=== PATIENT | female | born 1965 | race Caucasian/White ===

== ENCOUNTER 2016-04-02 10:50 | Emergency (ER) | payer BC, MEDICAID ==
[2016-04-02] MEDS ORDERED: PROMETHAZINE INJ 25 MG in SODIUM CHLORIDE 0.9% 50 ML IV STA (12:10)
[2016-04-02] MEDS ORDERED: SODIUM CHLORIDE 0.9% 1,000 ML IV ONE ×3 (12:10→12:23)
[2016-04-02] MEDS ORDERED: diphenhydrAMINE INJ 50 MG/ML VIAL IVP STA (12:11)
[2016-04-02] MEDS ORDERED: HYDROmorphone 1 MG/ML SYRINGE IVP STA ×3 (12:11→14:01)
[2016-04-02] MEDS ORDERED: DEXAMETHASONE 10 MG/ML VIAL PO STA (12:11)
[2016-04-02] MEDS ORDERED: PROMETHAZINE 25 MG/1 ML VIAL ONE (12:22)
[2016-04-02] MEDS ORDERED: diphenhydrAMINE INJ 50 MG/ML VIAL ONE (12:22)
[2016-04-02] MEDS ORDERED: DEXAMETHASONE 10 MG/ML VIAL ONE (12:23)
[2016-04-02] MEDS ORDERED: HYDROmorphone 1 MG/ML SYRINGE ONE ×3 (12:23→14:03)
[2016-04-02] MEDS ORDERED: ONDANSETRON 4 MG/2 ML VIAL IVP STA (13:06)
[2016-04-02] MEDS ORDERED: ONDANSETRON 4 MG/2 ML VIAL ONE (13:13)
== END 2016-04-02 14:13 | disposition home or self-care (01) ==
DX: E86.0 Dehydration (principal); G43.909 Migraine, unspecified, not intractable, without status migrainosus; J11.1 Influenza due to unidentified influenza virus with other respiratory manifestations; J45.909 Unspecified asthma, uncomplicated; E03.9 Hypothyroidism, unspecified; M19.90 Unspecified osteoarthritis, unspecified site

== ENCOUNTER 2016-06-18 07:41 | Emergency (ER) | payer BC, MEDICAID ==
[2016-06-18] MEDS ORDERED: HALOPERIDOL 5 MG/ML VIAL IM STA (08:06)
[2016-06-18] MEDS ORDERED: ONDANSETRON ODT 4 MG TABLET TL STA (08:07)
[2016-06-18] MEDS ORDERED: ONDANSETRON ODT 4 MG TABLET ONE (08:14)
[2016-06-18] MEDS ORDERED: HALOPERIDOL 5 MG/ML VIAL ONE (08:15)
[2016-06-18] MEDS ORDERED: HYDROmorphone 1 MG/ML SYRINGE IVP STA (09:28)
[2016-06-18] MEDS ORDERED: SODIUM CHLORIDE 0.9% 1,000 ML IV ONE (09:28)
[2016-06-18] MEDS ORDERED: diphenhydrAMINE INJ 50 MG/ML VIAL IVP STA (09:29)
[2016-06-18] MEDS ORDERED: diphenhydrAMINE INJ 50 MG/ML VIAL ONE (09:32)
[2016-06-18] MEDS ORDERED: HYDROmorphone 1 MG/ML SYRINGE ONE (09:32)
== END 2016-06-18 11:06 | disposition home or self-care (01) ==
DX: G43.909 Migraine, unspecified, not intractable, without status migrainosus (principal); H54.62 Unqualified visual loss, left eye, normal vision right eye; J45.909 Unspecified asthma, uncomplicated; E03.9 Hypothyroidism, unspecified; M81.0 Age-related osteoporosis without current pathological fracture
CPT/HCPCS: 96372; 96374; 96375; 99284; J1170; Q0162

== ENCOUNTER 2016-12-12 15:38 | Emergency (ER) | payer BC, MEDICAID ==
[2016-12-12] MEDS ORDERED: HYDROmorphone 1 MG/ML SYRINGE IM STA (16:20)
[2016-12-12] MEDS ORDERED: SODIUM CHLORIDE 0.9% 1,000 ML IV ONE (16:20)
[2016-12-12] MEDS ORDERED: PROMETHAZINE INJ 12.5 MG in SODIUM CHLORIDE 0.9% 50 ML IV STA (16:21)
[2016-12-12] MEDS ORDERED: diphenhydrAMINE INJ 50 MG/ML VIAL IVP STA (16:21)
[2016-12-12] MEDS ORDERED: HYDROmorphone 1 MG/ML SYRINGE IVP STA ×2 (16:37→17:31)
[2016-12-12] MEDS ORDERED: PROMETHAZINE 25 MG/1 ML VIAL ONE (16:54)
[2016-12-12] MEDS ORDERED: HYDROmorphone 1 MG/ML SYRINGE ONE ×2 (16:54→17:38)
[2016-12-12] MEDS ORDERED: diphenhydrAMINE INJ 50 MG/ML VIAL ONE (16:54)
[2016-12-12 17:55] VITALS: BP 117/62
--- NOTE | 2016-12-12 18:09 | ED Physician Documentation ---
PD HPI HEADACHE - Stated complaint Stated Complaint: MIGRAINE - Chief complaint Chief Complaint: Neuro - History obtained from History obtained from: Patient - History of Present Illness Timing - onset: How many hours ago (1.5) Timing - onset during: Rest Timing - details: Gradual onset Worst headache ever?: Worst headache ever? (No) Location: Global Quality: Aching Associated symptoms: Vomiting (x 2), Vision changes. No: Fever, Stiff neck, Weakness, Numbness Similar symptoms before: Diagnosis (She has a history of complex migraines with associated vision abnormality.) - Additional information Additional information: The patient is a 51-year-old female with history of complex migraines, who presents with global headache that started 1.5 hours prior to arrival. She has had 2 episodes of vomiting, and reports decreased vision in her left eye. She denies fever, abdominal pain, numbness or weakness. She is followed by a neurologist for similar symptoms, and has a care plan on file based on his recommendations. The last time she had a similar episode was 6 months ago. Review of Systems Constitutional: denies: Fever Eyes: reports: Decreased vision Ears: denies: Tinnitus/ringing Nose: denies: Congestion Throat: denies: Sore throat Cardiac: denies: Chest pain / pressure, Palpitations Respiratory: denies: Dyspnea, Cough GI: reports: Nausea, Vomiting. denies: Abdominal Pain : denies: Dysuria Skin: denies: Rash Musculoskeletal: denies: Neck pain Neurologic: reports: Headache. denies: Focal weakness, Numbness PD PAST MEDICAL HISTORY - Past Medical History Past Medical History: Yes Cardiovascular: None Respiratory: Asthma Neuro: Headache/migraine, Seizure disorder Endocrine/Autoimmune: HyPOthyroidism GI: None SENIOR QA AUTOMATION ENGINEER: None : None HEENT: None Psych: Depression, Anxiety, Bipolar disorder, ADD/ADHD Musculoskeletal: Osteoporosis, Other Derm: None - Past Surgical History Past Surgical History: Yes General: Colonoscopy /SENIOR QA AUTOMATION ENGINEER: Other HEENT: Tonsil/Adenoidectomy - Present Medications Home Medications: Ambulatory Orders Medication Instructions Recorded Confirmed Levothyroxine [Synthroid] 100 mcg PO DAILY 12/13/14 12/12/16 lamoTRIgine [LaMICtal] 150 mg PO DAILY 01/14/15 12/12/16 Hydrochlorothiazide 25 mg PO DAILY 02/15/15 12/12/16 Liothyronine [Cytomel] 25 mg PO DAILY 02/15/15 12/12/16 Aripiprazole [Abilify] 30 mg PO DAILY 02/19/15 12/12/16 Potassium Chloride 20 meq PO 12/12/16 - Allergies Allergies/Adverse Reactions: Allergies Allergy/AdvReac Type Severity Reaction Status Date / Time dihydroergotamine mesylate * Allergy Anaphylaxis Verified 01/12/16 12:07 [From Migranal] doxycycline Allergy Anaphylaxis Verified 01/12/16 12:07 ketorolac tromethamine * Allergy Anaphylaxis Verified 01/12/16 12:07 [From Toradol] butalbital [From Fiorinal] AdvReac Hallucinati Verified 01/12/16 12:07 ons sumatriptan [From Imitrex] AdvReac Unknown Verified 01/12/16 12:07 sumatriptan succinate * AdvReac Unknown Verified 01/12/16 12:07 [From Imitrex] [id number] Antimigraine AdvReac Unknown Verified 01/12/16 12:07 Agents - Social History Does the pt smoke?: No Smoking Status: Never smoker Does the pt drink ETOH?: No Does the pt have substance abuse?: No - Immunizations Immunizations are current?: Yes - POLST Patient has POLST: No PD ED PE NORMAL - Vitals Vital signs reviewed: Yes (Borderline hypertension initially.) - General General: Alert and oriented X 3, Well developed/nourished - HEENT HEENT: Atraumatic, PERRL, EOMI, Ears normal, Other (Fundi with sharp disc margins bilaterally, without papilledema.) - Neck Neck: Supple, no meningeal sign, No adenopathy, No JVD - Cardiac Cardiac: RRR, No murmur - Respiratory Respiratory: No respiratory distress, Clear bilaterally - Abdomen Abdomen: Soft, Non tender - Back Back: No CVA TTP - Derm Derm: No rash - Extremities Extremities: No edema, No calf tenderness / cord - Neuro Neuro: Alert and oriented X 3, No motor deficit, No sensory deficit, Normal speech Results - Vitals Vitals: Oxygen O2 Source Room air PD MEDICAL DECISION MAKING - ED course Complexity details: reviewed old records, re-evaluated patient, considered differential, d/w patient ED course: The patient's presentation is consistent with complex migraine headache with associated visual disturbance, similar to previous episodes. Treatment in the emergency department included administration of normal saline 1 L IV, Benadryl 50 mg IV, Phenergan 12.5 mg IV, and Dilaudid 1 mg IV. Her headache improved slightly with the above treatment. An additional 1 mg of Dilaudid was administered IV which provided more significant relief of her symptoms. I discussed with her the importance of follow-up with her neurologist, as well as potentially worrisome signs or symptoms that should prompt reevaluation in the emergency department. Departure - Departure Disposition: 01 Home, Self Care Clinical Impression: Migraine headache Qualifiers: Migraine type: ophthalmoplegic Intractability: not intractable Qualified Code(s ): G43.B0 - Ophthalmoplegic migraine, not intractable Condition: Stable Instructions: ED Headache Migraine Follow-Up: FÁTIMA HEBERT [Physician No Access] - Comments: Use your previously prescribed pain medication if needed for persistent or recurrent headache. Follow-up with your primary physician or your neurologist within 1-2 weeks. Call to schedule an appointment. Return to the emergency department if you develop increasing headache, persistent vomiting, or otherwise worsening symptoms. Discharge Date/Time: 12/12/16 18:28
== END 2016-12-12 18:28 | disposition home or self-care (01) ==
LOC: ED 15:38
DX: G43.B0 Ophthalmoplegic migraine, not intractable (principal); J45.909 Unspecified asthma, uncomplicated; E03.9 Hypothyroidism, unspecified; M81.0 Age-related osteoporosis without current pathological fracture
CPT/HCPCS: 96361; 96374; 96375; 99283; 99284; J1170; J7040

== ENCOUNTER 2017-01-06 17:46 | Emergency (ER) | payer BC ==
[2017-01-06] MEDS ORDERED: SODIUM CHLORIDE 0.9% 1,000 ML IV ONE (20:25)
[2017-01-06] MEDS ORDERED: diphenhydrAMINE INJ 50 MG/ML VIAL IVP STA (20:25)
[2017-01-06] MEDS ORDERED: PROMETHAZINE INJ 25 MG in SODIUM CHLORIDE 0.9% 50 ML IV STA (20:25)
[2017-01-06] MEDS ORDERED: HYDROmorphone 1 MG/ML CARPUJECT IVP STA ×4 (20:25→22:46)
[2017-01-06] MEDS ORDERED: HYDROmorphone 1 MG/ML SYRINGE ONE ×3 (20:53→23:02)
[2017-01-06] MEDS ORDERED: PROMETHAZINE 25 MG/1 ML VIAL ONE (20:53)
[2017-01-06] MEDS ORDERED: diphenhydrAMINE INJ 50 MG/ML VIAL ONE (20:53)
[2017-01-06 22:54] VITALS: BP 159/91
--- NOTE | 2017-01-06 22:58 | CT Preliminary Report ---
Exam: CT HEAD W/O IMPRESSION: Retained secretions within the right sphenoid. No acute or focal intracranial abnormality. [facility] SITE ID: [id number]
--- NOTE | 2017-01-06 23:00 | CT Report ---
EXAM: CT HEAD EXAM DATE: 01/06/2017 10:41 PM. CLINICAL HISTORY: Headache, decreased vision. COMPARISON: 04/06/2015. TECHNIQUE: Multiaxial CT images were obtained from the foramen magnum to the vertex. IV contrast: Non e. Reformats: Coronal. In accordance with CT protocol optimization, one or more of the following dose reduction techniques w ere utilized for this exam: automated exposure control, adjustment of mA and/or KV based on patient s ize, or use of iterative reconstructive technique. FINDINGS: Parenchyma: No intraparenchymal hemorrhage. No evidence of mass, midline shift, or CT findings of inf arction. Saha-white differentiation is distinct. Extraaxial Spaces: Normal for age. No subdural or epidural collections identified. Ventricles: Normal in size and position. Sinuses: Bubbly secretions within the right sphenoid air cell, predominantly within the pneumatized p terygoid process, new. Other paranasal sinuses and mastoids are unremarkable. Bones: No evidence of fracture or calvarial defect. Other: None. IMPRESSION: Retained secretions within the right sphenoid. No acute or focal intracranial abnormality. [facility] Referring Provider Line: [phone] SITE ID: [id number]
--- NOTE | 2017-01-06 23:03 | ED Physician Documentation ---
PD HPI HEADACHE - Stated complaint Stated Complaint: VOMITING/HEADACHE - Chief complaint Chief Complaint: Neuro - History obtained from History obtained from: Patient - History of Present Illness Timing - onset: Chronic Timing - details: Gradual onset, Still present, Constant Worst headache ever?: Worst headache ever? (no) Location: Front Quality: Aching. No: Thunderclap, Throbbing, Stabbing Associated symptoms: No: Fever, Stiff neck Improved by: Rest Similar symptoms before: Work up / diagnostics, Treatment, Follow up Recently seen: Emergency Dept - Additional information Additional information: Patient is a 51 year old female with a history of recurrent migraines with multiple ED visits for her migraines. Patient states that for the last few days she has had a progressively worsening of her headache and is unable to see out of her left eye. patient went to [facility] for the same symptoms yesterday and stated that her symptoms never improved. Review of Systems Constitutional: denies: Fever, Chills Eyes: reports: Loss of vision, Decreased vision, Photophobia Ears: denies: Ear pain, Drainage/discharge Nose: denies: Congestion Throat: denies: Sore throat Cardiac: denies: Chest pain / pressure Respiratory: denies: Dyspnea, Cough, Wheezing GI: reports: Nausea. denies: Vomiting, Constipation, Diarrhea : reports: Reviewed and negative Skin: reports: Reviewed and negative Musculoskeletal: denies: Neck pain, Back pain, Extremity pain, Joint pain Neurologic: reports: Headache. denies: Generalized weakness, Focal weakness, Numbness, Difficulty speaking, Confused, Altered mental status, Head injury, LOC Psychiatric: reports: Anxiety Immunocompromised: denies: Immunocompromised PD PAST MEDICAL HISTORY - Past Medical History Past Medical History: Yes Cardiovascular: None Respiratory: Asthma Neuro: Headache/migraine, Seizure disorder Endocrine/Autoimmune: HyPOthyroidism GI: None STAFFING MANAGER: None : None HEENT: None Psych: Depression, Anxiety, Bipolar disorder, ADD/ADHD Musculoskeletal: Osteoporosis, Other Derm: None - Past Surgical History Past Surgical History: Yes General: Colonoscopy /STAFFING MANAGER: Other HEENT: Tonsil/Adenoidectomy - Present Medications Home Medications: Ambulatory Orders Medication Instructions Recorded Confirmed Levothyroxine [Synthroid] 100 mcg PO DAILY 12/13/14 12/12/16 lamoTRIgine [LaMICtal] 150 mg PO DAILY 01/14/15 12/12/16 Hydrochlorothiazide 25 mg PO DAILY 02/15/15 12/12/16 Liothyronine [Cytomel] 25 mg PO DAILY 02/15/15 12/12/16 Aripiprazole [Abilify] 30 mg PO DAILY 02/19/15 12/12/16 Potassium Chloride 20 meq PO 12/12/16 - Allergies Allergies/Adverse Reactions: Allergies Allergy/AdvReac Type Severity Reaction Status Date / Time dihydroergotamine mesylate * Allergy Anaphylaxis Verified 01/12/16 12:07 [From Migranal] doxycycline Allergy Anaphylaxis Verified 01/12/16 12:07 ketorolac tromethamine * Allergy Anaphylaxis Verified 01/12/16 12:07 [From Toradol] butalbital [From Fiorinal] AdvReac Hallucinati Verified 01/12/16 12:07 ons sumatriptan [From Imitrex] AdvReac Unknown Verified 01/12/16 12:07 sumatriptan succinate * AdvReac Unknown Verified 01/12/16 12:07 [From Imitrex] [id number] Antimigraine AdvReac Unknown Verified 01/12/16 12:07 Agents - Social History Does the pt smoke?: No Smoking Status: Never smoker Does the pt drink ETOH?: No Does the pt have substance abuse?: No - Immunizations Immunizations are current?: Yes - POLST Patient has POLST: No PD ED PE NORMAL - Vitals Vital signs reviewed: Yes - General General: Alert and oriented X 3, No acute distress - HEENT HEENT: Atraumatic, PERRL, EOMI, Moist mucous membranes, Pharynx benign - Neck Neck: Supple, no meningeal sign, No JVD - Cardiac Cardiac: RRR, No murmur - Respiratory Respiratory: No respiratory distress, Clear bilaterally - Abdomen Abdomen: Soft, Non tender, Non distended - Derm Derm: Normal color, Warm and dry, No rash - Extremities Extremities: No deformity, No tenderness to palpate, Normal ROM s pain - Neuro Neuro: Alert and oriented X 3, 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, No motor deficit, No sensory deficit, Normal speech - Psych Psych: Normal mood, Normal affect Results - Vitals Vitals: Vital Signs - 24 hr 01/06/17 01/06/17 01/06/17 17:52 19:32 20:53 Temperature 36.5 C 36.5 C Heart Rate 85 94 80 Respiratory 18 20 17 Rate Blood Pressure 169/95 H 159/107 H 154/86 H O2 Saturation 99 96 96 01/06/17 01/06/17 01/06/17 21:42 22:53 23:15 Temperature 36.0 C L Heart Rate 80 77 76 Respiratory 18 18 17 Rate Blood Pressure 157/87 H 159/91 H O2 Saturation 98 98 99 Oxygen O2 Source Room air - Rads (name of study) ct head Radiology: Final report received (no acute intracranial pathology) PD MEDICAL DECISION MAKING - ED course Complexity details: reviewed old records, reviewed results, re-evaluated patient , considered differential, d/w patient ED course: Patient was seen and examined at bedside. patient was well appearing. following patient's pain contract patient was treated with IV fluids, dilaudid, benadryl and phenagren. Upon re-evlauation patient was still in pain and stated that she could still not see out of her left eye, even thought the neurological exam was benign and patient was focusing with both of her eyes when talking. Patient was sent for imaging and treated with an additional 1mg of dilaudid. Patient had minimal relief but was unlikely having a true neurological emergency. Patient was treated with one additional dose of dilaudid before being discharged. Departure - Departure Disposition: 01 Home, Self Care Clinical Impression: Migraine headache Condition: Good Instructions: ED Headache Migraine Follow-Up: Emiliano Deluca MD [Primary Care Provider] - Comments: Your diagnostics today were within normal limits. there was no intracranial pathology. You will need to follow up with your pmd for further evaluation and care. Discharge Date/Time: 01/06/17 23:19
== END 2017-01-06 23:19 | disposition home or self-care (01) ==
LOC: ED 17:46
DX: G43.909 Migraine, unspecified, not intractable, without status migrainosus (principal); E03.9 Hypothyroidism, unspecified; J45.909 Unspecified asthma, uncomplicated; M81.0 Age-related osteoporosis without current pathological fracture
CPT/HCPCS: 70450; 96365; 96375; 96376; 99284; J1170; J7040

== ENCOUNTER 2017-02-05 19:05 | Outpatient (CLI) | payer BC | END 2017-02-05 19:06 | disposition critical access hospital (66) | LOC: EMS 19:05 | PROVIDERS: ATTEND Surgery | DX: R41.82 Altered mental status, unspecified (principal) | CPT/HCPCS: A0425; A0427 ==

== ENCOUNTER 2017-02-09 12:57 | Outpatient (CLI) | payer BC | END 2017-02-09 12:58 | disposition EMS.NT | LOC: EMS 12:57 | PROVIDERS: ATTEND Surgery | DX: F10.129 Alcohol abuse with intoxication, unspecified (principal) ==

== ENCOUNTER 2017-02-13 15:08 | Outpatient (CLI) | payer BC | END 2017-02-13 15:09 | disposition critical access hospital (66) | LOC: EMS 15:08 | PROVIDERS: ATTEND Surgery | DX: R45.851 Suicidal ideations (principal) | CPT/HCPCS: A0425; A0429 ==

== ENCOUNTER 2017-02-13 15:31 | Emergency (ER) | payer BC ==
--- NOTE | 2017-02-13 15:45 | ED Physician Documentation ---
History of Present Illness - Stated complaint Stated Complaint: DETOX,SI - Chief complaint Chief Complaint: MHE - History obtained from History obtained from: Patient - History of Present Illness Timing: Today Pain level max: 8 Pain level now: 8 Improved by: nothing Worsened by: nothing - Additonal information Additional information: Patient states that she quit drinking 2 days ago. Per EMS she was in a hotel with her mother today. Her mother called 911 for SI. Patient relates SI to EMS, but refuses to speak to me about it. States she "feels horrible" and is "detoxing". No seizures. No hallucinations. States she normally doesn't drink much, but has been binge drinking recently. States thinks that she fell. Review of Systems Ten Systems: 10 systems reviewed and negative Constitutional: denies: Fever, Chills Eyes: denies: Photophobia Ears: denies: Ear pain Nose: denies: Rhinorrhea / runny nose, Congestion Throat: denies: Sore throat Cardiac: denies: Chest pain / pressure Respiratory: denies: Cough GI: denies: Abdominal Pain, Nausea, Vomiting, Diarrhea : denies: Dysuria Skin: denies: Rash Musculoskeletal: denies: Neck pain, Back pain Neurologic: reports: Headache (states feels like her typical migraine). denies : Focal weakness, Numbness, Confused, Altered mental status Psychiatric: reports: Suicidal (per EMS and her mother). denies: Hallucinations , Insomnia PD PAST MEDICAL HISTORY - Past Medical History Past Medical History: Yes Cardiovascular: None Respiratory: Asthma Neuro: Headache/migraine, Seizure disorder Endocrine/Autoimmune: HyPOthyroidism GI: None WEB DATABASE DEVELOPER: None : None HEENT: None Psych: Depression, Anxiety, Bipolar disorder, ADD/ADHD Musculoskeletal: Osteoporosis, Other Derm: None - Past Surgical History Past Surgical History: Yes General: Colonoscopy /WEB DATABASE DEVELOPER: Other HEENT: Tonsil/Adenoidectomy - Present Medications Home Medications: Ambulatory Orders Medication Instructions Recorded Confirmed Levothyroxine [Synthroid] 100 mcg PO DAILY 12/13/14 02/13/17 lamoTRIgine [LaMICtal] 150 mg PO DAILY 01/14/15 02/13/17 Hydrochlorothiazide 25 mg PO DAILY 02/15/15 02/13/17 Liothyronine [Cytomel] 25 mg PO DAILY 02/15/15 02/13/17 Aripiprazole [Abilify] 30 mg PO DAILY 02/19/15 02/13/17 Potassium Chloride 20 meq PO DAILY 12/12/16 02/13/17 Dextroamphetamine/Amphetamine 1 tab PO DAILY 01/22/17 02/13/17 [Adderall 20 mg Tablet] Lidocaine Patch 5% [Lidoderm Patch] 1 each TOP DAILY PRN #10 patch 01/22/17 Ondansetron Odt [Zofran Odt] 4 mg PO DAILY PRN 01/22/17 02/13/17 Bupropion HCl [Bupropion Xl] 300 mg PO DAILY 02/05/17 02/13/17 Promethazine [Phenergan] 25 mg PO BID PRN MDD 50 02/05/17 02/13/17 dimenhyDRINATE [Dimenhydrinate] 50 mg PO PRN PRN 02/05/17 02/13/17 fentaNYL [Fentanyl 75mcg patch] 75 mcg TD UD 02/05/17 02/13/17 traZODone [Desyrel] 50 mg PO QPM 02/05/17 02/13/17 Amox/Clav 875/125 [Augmentin 1 tab PO BID 02/13/17 02/13/17 875/125] QUEtiapine [SEROquel] 100 mg PO 2100 02/13/17 02/13/17 - Allergies Allergies/Adverse Reactions: Allergies Allergy/AdvReac Type Severity Reaction Status Date / Time dihydroergotamine mesylate * Allergy Anaphylaxis Verified 02/13/17 15:38 [From Migranal] doxycycline Allergy Anaphylaxis Verified 02/13/17 15:38 ketorolac tromethamine * Allergy Anaphylaxis Verified 02/13/17 15:38 [From Toradol] butalbital [From Fiorinal] AdvReac Hallucinati Verified 02/13/17 15:38 ons sumatriptan [From Imitrex] AdvReac Unknown Verified 02/13/17 15:38 sumatriptan succinate * AdvReac Unknown Verified 02/13/17 15:38 [From Imitrex] [id number] Antimigraine AdvReac Unknown Verified 02/13/17 15:38 Agents - Social History Does the pt smoke?: No Smoking Status: Never smoker Does the pt drink ETOH?: No Does the pt have substance abuse?: No - Immunizations Immunizations are current?: Yes - POLST Patient has POLST: No PD ED PE NORMAL - Vitals Vital signs reviewed: Yes - General General: Alert and oriented X 3, No acute distress, Well developed/nourished - HEENT HEENT: Atraumatic (no scalp hematomas or abrasions), PERRL, EOMI, Moist mucous membranes, Pharynx benign, Other (brusing to the bridge of the nose (appears days old) and abrasion to the lower lip (appears several days old as well).) - Neck Neck: Supple, no meningeal sign, No bony TTP - Cardiac Cardiac: RRR - Respiratory Respiratory: No respiratory distress, Clear bilaterally - Abdomen Abdomen: Soft, Non tender, Non distended - Back Back: No spinal TTP - Derm Derm: Warm and dry - Neuro Neuro: Alert and oriented X 3, 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 labile. ) Results - Vitals Vitals: Vital Signs - 24 hr 02/13/17 15:32 Temperature 36.2 C L Heart Rate 88 Respiratory 16 Rate Blood Pressure 137/84 H O2 Saturation 94 Oxygen O2 Source Room air - Labs Labs: Laboratory Tests 02/13/17 02/13/17 02/13/17 15:53 15:53 15:53 WBC 9.9 RBC 5.03 Hgb 14.8 Hct 43.6 MCV 86.7 MCH 29.5 MCHC 34.0 RDW 17.0 H Plt Count 329 MPV 7.5 L Neut # 7.2 H Lymph # 2.0 [place] # 0.7 Eos # 0.0 Baso # 0.1 Absolute Nucleated RBC 0.00 Nucleated RBC % 0.0 Sodium 137 Potassium 2.1 L* Chloride 88 L Carbon Dioxide 27 Anion Gap 22.0 H BUN 7 Creatinine 0.6 Estimated GFR (MDRD) 105 Glucose 98 Calcium 9.5 Phosphorus Magnesium Total Bilirubin 0.5 AST 62 H ALT 38 Alkaline Phosphatase 79 Total Protein 8.2 Albumin 4.2 Globulin 4.0 Albumin/Globulin Ratio 1.1 Lipase 32 TSH 1.96 Urine Color Urine Clarity Urine pH Ur Specific [place] Urine Protein Urine Glucose (UA) Urine Ketones Urine Occult Blood Urine Nitrite Urine Bilirubin Urine Urobilinogen Ur Leukocyte Esterase Ur Microscopic Review Urine Culture Comments Salicylates < 6.0 Urine Opiates Screen Ur Oxycodone Screen Urine Methadone Screen Ur Propoxyphene Screen Acetaminophen < 10 L Ur Barbiturates Screen Ur Tricyclics Screen Ur Phencyclidine Scrn Ur Amphetamine Screen U Methamphetamines Scrn U Benzodiazepines Scrn Urine Cocaine Screen U Cannabinoids Screen Ethyl Alcohol 310.3 02/13/17 02/13/17 02/13/17 15:53 16:03 20:25 WBC RBC Hgb Hct MCV MCH MCHC RDW Plt Count MPV Neut # Lymph # [place] # Eos # Baso # Absolute Nucleated RBC Nucleated RBC % Sodium Potassium 2.6 L Chloride Carbon Dioxide Anion Gap BUN Creatinine Estimated GFR (MDRD) Glucose Calcium Phosphorus 4.2 Magnesium 2.1 Total Bilirubin AST ALT Alkaline Phosphatase Total Protein Albumin Globulin Albumin/Globulin Ratio Lipase TSH Urine Color YELLOW Urine Clarity CLEAR Urine pH 6.5 Ur Specific [place] <=1.005 Urine Protein NEGATIVE Urine Glucose (UA) NEGATIVE Urine Ketones NEGATIVE Urine Occult Blood NEGATIVE Urine Nitrite NEGATIVE Urine Bilirubin NEGATIVE Urine Urobilinogen 0.2 (NORMAL) Ur Leukocyte Esterase NEGATIVE Ur Microscopic Review NOT INDICATED Urine Culture Comments NOT INDICATED Salicylates Urine Opiates Screen NEGATIVE Ur Oxycodone Screen NEGATIVE Urine Methadone Screen NEGATIVE Ur Propoxyphene Screen NEGATIVE Acetaminophen Ur Barbiturates Screen NEGATIVE Ur Tricyclics Screen NEGATIVE Ur Phencyclidine Scrn NEGATIVE Ur Amphetamine Screen NEGATIVE U Methamphetamines Scrn NEGATIVE U Benzodiazepines Scrn NEGATIVE Urine Cocaine Screen NEGATIVE U Cannabinoids Screen NEGATIVE Ethyl Alcohol - Rads (name of study) head CT Radiology: Prelim report reviewed, EMP read contemporaneously, See rad report ( No acute intracranial abnormality) PD MEDICAL DECISION MAKING - ED course Complexity details: reviewed old records, reviewed results, re-evaluated patient , considered differential, d/w patient, d/w family ED course: Patient is a 51-year-old female who presents to the emergency department with alcohol intoxication. She had told her mother and the paramedics that she was suicidal. Refused to tell me if she was suicidal or not and states she does not want to talk about that. Later in the visit she then stated that she did not tell anybody she was suicidal and has never stated that she has been suicidal. She also thinks she is going through alcohol withdrawal and was going to have a seizure when her blood alcohol level was 300. She states that she last drank 2 days ago. Her potassium is also chronically low and this was replaced in the emergency department. Also given a banana bag. She will be signed out to the oncoming emergency department physician for the remainder of her care. May need to be seen by social media director TARIK Moeller for psychiatric clearance depending on her mental state after sobering from alcohol. This document was made in part using voice recognition software. While efforts are made to proofread this document, sound alike and grammatical errors may occur. Departure - Departure Clinical Impression: Suicidal ideation, Hypokalemia Alcohol intoxication Qualifiers: Complication of substance-induced condition: uncomplicated Qualified Code(s): F10.920 - Alcohol use, unspecified with intoxication, uncomplicated Condition: Good
[2017-02-13] MEDS ORDERED: MULTIVITAMIN 10 ML in SODIUM CHLORIDE 0.9% 1,000 ML IV STA ×2 (15:47→15:48)
[2017-02-13] MEDS ORDERED: MAGNESIUM SULFATE 2 GRAM 2 GM/50 ML BAG IV STA (15:48)
[2017-02-13] MEDS ORDERED: THIAMINE INJ 100 MG, FOLIC ACID INJ 1 MG in SODIUM CHLORIDE 0.9% 100ML 100 ML IV STA (15:48)
[2017-02-13 16:01] LABS: BASOPHILS # (AUTO) 0.1 10^3/uL (0.0-0.1); BASOPHILS % (AUTO) 0.6 %; EOSINOPHILS % (AUTO) 0.3 %; HCT - HEMATOCRIT 43.6 % (37.0-47.0); HGB - HEMOGLOBIN 14.8 g/dL (12.0-16.0); LYMPHOCYTES % (AUTO) 20.4 %; MEAN CORPUSCULAR HEMOGLOBIN 29.5 pg (27.0-31.0); MEAN CORPUSCULAR VOLUME 86.7 fL (81.0-99.0); MEAN PLATELET VOLUME 7.5 fL (7.9-10.8); MONOCYTES # (AUTO) 0.7 10^3/uL (0.0-1.0); MONOCYTES % (AUTO) 6.6 %; NEUTROPHILS # (AUTO) 7.2 10^3/uL (1.5-6.6); NEUTROPHILS % (AUTO) 72.1 %; RED BLOOD COUNT 5.03 10^6/uL (4.20-5.40); UNCORRECTED WHITE BLOOD COUNT 9.9 x10^3/uL; WHITE BLOOD COUNT 9.9 x10^3/uL (4.8-10.8)
[2017-02-13 16:13] LABS: BILIRUBIN,URINE NEGATIVE (NEGATIVE); PH,URINE 6.5 PH (5.0-7.5); UA CHARGE (STRIP ONLY) YES; UR CULTURE IF IND NOT INDICATED
[2017-02-13] MEDS ORDERED: chlordiazePOXIDE 25 MG CAPSULE PO STA ×2 (16:39→20:13)
[2017-02-13 16:40] LABS: ALBUMIN/GLOBULIN RATIO 1.1 (1.0-2.2); BILIRUBIN,TOTAL 0.5 mg/dL (0.2-1.0); BUN - BLOOD UREA NITROGEN 7 mg/dL (6-20); CALCIUM 9.5 mg/dL (8.5-10.3); CARBON DIOXIDE - CO2 27 mmol/L (21-32); CHLORIDE 88 mmol/L (101-111); CREATININE 0.6 mg/dL (0.4-1.0); GFR - MDRD 105 (>89); GLUCOSE 98 mg/dL (70-100); LIPASE 32 U/L (22-51); SODIUM 137 mmol/L (135-145); TOTAL PROTEIN 8.2 g/dL (6.7-8.2)
[2017-02-13 16:44] LABS: ACETAMINOPHEN < 10 ug/mL (10-30)
[2017-02-13] MEDS ORDERED: POTASSIUM BICARB 25 MEQ TABLET PO STA ×2 (16:44→19:43)
[2017-02-13] MEDS ORDERED: POTASSIUM CHLOR 10 MEQ/100 ML 10 MEQ/100 ML BAG IV ONE ×3 (16:44→17:17)
[2017-02-13] MEDS ORDERED: chlordiazePOXIDE 25 MG CAPSULE PO ONE ×2 (16:49→21:16)
[2017-02-13] MEDS ORDERED: MAGNESIUM SULFATE 2 GRAM 2 GM/50 ML BAG IV ONE (16:49)
[2017-02-13 16:58] LABS: SALICYLATE < 6.0 mg/dL
[2017-02-13 16:59] LABS: POTASSIUM 2.1 mmol/L (3.5-5.0)
[2017-02-13 17:03] LABS: MAGNESIUM 2.1 mg/dL (1.7-2.8); PHOSPHORUS 4.2 mg/dL (2.5-4.6)
[2017-02-13] MEDS ORDERED: POTASSIUM BICARB 25 MEQ TABLET PO ONE ×2 (17:03→21:17)
--- NOTE | 2017-02-13 17:11 | CT Preliminary Report ---
Exam: CT HEAD W/O IMPRESSION: Normal head CT. [facility] SITE ID: [id number]
--- NOTE | 2017-02-13 17:18 | CT Report ---
EXAM: CT HEAD EXAM DATE: 02/13/2017 04:23 PM. CLINICAL HISTORY: History of migraine headaches. Fall 3 days ago with head injury. Patient presents w ith headache. COMPARISON: 01/06/2017. TECHNIQUE: Multiaxial CT images were obtained from the foramen magnum to the vertex. Reformats: Coron al. IV contrast: None. In accordance with CT protocol optimization, one or more of the following dose reduction techniques w ere utilized for this exam: automated exposure control, adjustment of mA and/or KV based on patient s ize, or use of iterative reconstructive technique. FINDINGS: Parenchyma: No intraparenchymal hemorrhage. No evidence of mass, midline shift, or CT findings of inf arction. Saha-white differentiation is distinct. Extraaxial Spaces: Normal for age. No subdural or epidural collections identified. Ventricles: Normal in size and position. Sinuses and Orbits: Minimal mucosal thickening scattered in the right sphenoid air cells. Imaged para nasal sinuses, orbits, and mastoids show no significant abnormality. Bones: No evidence of fracture or calvarial defect. Other: None. IMPRESSION: Normal head CT. [facility] Referring Provider Line: [phone] SITE ID: [id number]
[2017-02-13] MEDS ORDERED: ACETAMINOPHEN 325 MG TABLET PO STA (17:25)
[2017-02-13] MEDS ORDERED: ACETAMINOPHEN 325 MG TABLET PO ONE (17:48)
[2017-02-13] MEDS ORDERED: GABAPENTIN 100 MG CAPSULE PO STA (18:08)
[2017-02-13] MEDS ORDERED: GABAPENTIN 300 MG CAPSULE ONE (18:59)
[2017-02-14] MEDS ORDERED: ACETAMINOPHEN 500 MG TABLET PO STA (01:42)
[2017-02-14] MEDS ORDERED: ACETAMINOPHEN 500 MG TABLET PO ONE (01:57)
[2017-02-14] MEDS ORDERED: LORazepam 2 MG/ML SYRINGE IVP STA (01:58)
[2017-02-14] MEDS ORDERED: LORazepam 2 MG/ML SYRINGE ONE (02:03)
[2017-02-14] MEDS ORDERED: ONDANSETRON 4 MG/2 ML VIAL ONE (02:17)
--- NOTE | 2017-02-14 03:30 | ED Physician Documentation ---
ED Addendum - Addendum Addendum: 02/14/17 03:24 Patient was signed over to me from Dr. Blanton. Patient was awaiting sobriety and disposition. After over 10 hours a repeat alcohol level was performed and was negative. Patient denied any suicidal or homicidal ideation. Patient stated that she felt shakey and wanted to detox. patient was treated wiht 1mg of ativan. Patient had no active tremors, was able to text, read paper without any difficulty. patient was given information for detox center and prescription was written for a few ativan to help her get through her symptoms until she was able to get into a detox center. patient was stable for discharge with outpatient follow up.
[2017-02-14] MEDS ORDERED: ONDANSETRON ODT 4 MG TABLET TL STA (03:44)
[2017-02-14 03:48] VITALS: BP 114/66
[2017-02-14] MEDS ORDERED: ONDANSETRON ODT 4 MG TABLET ONE (03:54)
--- NOTE | 2017-02-16 12:10 | ED Physician Documentation ---
ED Addendum - Addendum Addendum: 02/16/17 12:09 I spoke with prescriber, Dr Haji in Pdx, discussed recent visits and dxs and concern for addiction.
== END 2017-02-14 04:11 | disposition home or self-care (01) ==
LOC: EDUNIT# → ED 15:31
DX: R45.851 Suicidal ideations (principal); E87.6 Hypokalemia; F10.920 Alcohol use, unspecified with intoxication, uncomplicated; Y90.8 Blood alcohol level of 240 mg/100 ml or more
CPT/HCPCS: 36415; 70450; 80053; 80306; 80307; 80320; 80329; 81003; 83690; 83735; 84100; 84132; 84443; 85025; 96365; 96366; 96368; 96375; 99284; 99285; A9270; J2060; J3411; Q0162; 81001; 87086

== ENCOUNTER 2017-02-14 14:19 | Outpatient (CLI) | payer BC | END 2017-02-14 14:20 | disposition home or self-care (01) | LOC: EMS 14:19 | PROVIDERS: ATTEND Surgery | DX: F10.129 Alcohol abuse with intoxication, unspecified (principal); R45.851 Suicidal ideations | CPT/HCPCS: A0425; A0427 ==